=== PATIENT | female | born 1995 | race Two or more races ===

== ENCOUNTER 2024-08-23 00:41 | Emergency (ER) | payer MEDICAID, OTHER ==
[~2024-08-23] VITALS: Ht 157.5 cm; Wt 70.9 kg
--- NOTE | 2024-08-23 01:09 | ED.PDOC ---
GI ASSESSMENT HPI Comments A 28 year old female presents to the ED with a chief complaint of abdominal pain onset 3 days. Patient states she began experiencing abdominal pain as well as fever, congestion 3 days ago and woke up about 1 hour ago with nausea/ vomiting and noticed blood in vomit. Patient denies constipation, diarrhea, chest pain, shortness of breath, headache. She has a past medical history of IBS. No other symptoms or modifying factors present at this time. Chief Complaint: Flu like Time Seen by MD: 00:48 Reviewed Notes: Medications, Allergies Allergies: Coded Allergies: NO KNOWN ALLERGIES (Unverified , 08/23/24) Home Meds Active Scripts Ondansetron Odt 4MG Tab (ZOFRAN PO) 4 Mg Tb, 4 MG PO TIDPRN PRN for 3 Days, #9 TAB ODT TAB-DISSOLVE IN MOUTH, THEN SWALLOW Prov:RICHARD FERNÁNDEZ MD 08/23/24 Sucralfate (CARAFATE) 1 Gm Tab, 1 GM OR TID PRN for 3 Days, #9 TAB Prov:RICHARD FERNÁNDEZ MD 08/23/24 Pantoprazole Sodium Sesquihydr (Protonix) 40 Mg Tab, 40 MG PO DAILY for 5 Days, #5 TAB Prov:RICHARD FERNÁNDEZ MD 08/23/24 Information Source: Patient Mode of Arrival: Ambulatory Timing: Days Duration: Since onset Prehospital treatment: None Severity: Moderate Recent: None Recent Hx of: None Pain Location: Epigastric Associated sign and symptoms: Nausea, Vomiting, Abdominal Pain, Fever Vital Signs Vital Signs Date Time Temp Pulse Resp B/P (MAP) Pulse Ox O2 Delivery O2 Flow Rate FiO2 08/23/24 03:41 78 16 141/85 (103) 96 08/23/24 02:46 97.8 97.8 Physical Exam General: Awake, alert and oriented. No acute distress. Skin: Skin in warm, dry and intact. Appropriate color for ethnicity. Nailbeds pink with no cyanosis. HEENT: The head is normocephalic and atraumatic. Conjunctivae are clear without exudates or hemorrhage. Sclera is non-icteric. EOM are intact. No signs of nystagmus. Eyelids are normal in appearance without swelling or lesions. Oral mucosa is pink and moist Neck: The neck is supple with normal range of motion. No JVD. Cardiac: Heart rate and rhythm are normal. No murmurs, gallops, or rubs are auscultated. Respiratory: No signs of respiratory distress. Lung sounds are clear in all lobes bilaterally without rales, ronchi, or wheezes. Abdominal: Abdomen is soft, generally-tender without distention. Bowel sounds are present and normoactive in all four quadrants. Extremities: Upper and lower extremities are atraumatic in appearance without deformity or edema. Neurological: The patient is awake, alert and oriented to person, place, and time with normal speech. Speech is clear. There is no facial asymmetry. Psychiatric: Appropriate mood and affect. Good judgement and insight. No visual or auditory hallucinations. Review of Systems: REVIEW OF SYSTEMS: Positive fever, positive chills, or fatigue HEENT: No sore throat, no earache, positive congestion, no neck pain. Cardiac: No chest pain. No palpitations. Lungs: No shortness of breath, positive cough. GI: No nausea, no vomiting, no diarrhea, no constipation, positive abdominal pain : No dysuria, frequency, or urgency. No hematuria. Musculoskeletal: No joint pain , no joint swelling, no extremity edema. Skin: No rash, no itching. Neuro: No headache, no dizziness, no weakness Past Medical History Past Medical History (Other): IBS Surgical History: Denies all surgeries VETERINARY MANAGER History: No Pertinent VETERINARY MANAGER History Family History Family History: Reviewed,noncontributory to illness, No family hx of Cancer, No family hx of DM, No family hx of Heart girma, No family hx of HTN, No family hx ofKidney girma, No family hx of Liver girma, No family hx of Lung girma, No family hx of Stroke Social History Smoker: Non-Smoker Alcohol: Denies ETOH Use Drugs: Denies Drug Use Lives In: Home Was a procedure done? Was a procedure done?: No GI differential Dx Differential Diagnosis: Other Other Differential Diagnosis Peptic ulcer disease, esophageal varices,Andrea's esophagus, cancer, divertic ular disease, esophageal rupture/perforation, Antonieta-Wiley tear X-Ray, Labs, Meds, VS Vital Signs Date Time Temp Pulse Resp B/P (MAP) Pulse Ox O2 Delivery O2 Flow Rate FiO2 08/23/24 03:41 78 16 141/85 (103) 96 08/23/24 03:39 78 16 141/85 08/23/24 03:02 87 20 125/86 08/23/24 02:46 97.8 89 20 125/86 (99) 98 97.8 08/23/24 00:56 98.2 120 18 134/74 (94) 96 Lab Test 08/23/24 03:20 08/23/24 01:15 08/23/24 00:55 Range/Units Urine Color Yellow Yellow Urine Clarity Clear Clear Urine pH 6.0 5.0-9.0 Urine Specific [place] < 1.050 H 1.001-1.035 Urine Protein 1+ H Negative Urine Ketones Trace Negative Urine Blood 3+ H Negative /uL Urine Nitrite Negative Negative Urine Bilirubin Negative Negative Urine Urobilinogen Normal Negative mg/dL Urine Leukocyte Esterase Negative Negative /uL Urine RBC 46 0 - 4 /hpf Urine WBC 2 0 - 5 /hpf Urine Squamous Epithelial Cells Few <5 /hpf Urine Bacteria None seen None Seen /hpf Urine Mucus Few None Seen Urine Glucose Normal Normal mg/dL White Blood Count 11.6 H 4.4-10.8 10^3/uL Red Blood Count 5.22 H 4.0-5.20 10^6/uL Hemoglobin 15.9 12.2-16.2 g/dL Hematocrit 47.1 H 36.0-46.0 % Mean Corpuscular Volume 90.2 80.0-100.0 fL Mean Corpuscular Hemoglobin 30.5 28.0-32.0 pg Mean Corpuscular Hemoglobin Concent 33.8 32.0-36.0 g/dL Red Cell Distribution Width 13.0 11.8-14.3 % Platelet Count 356 140-450 10^3/uL Mean Platelet Volume 7.5 6.9-10.8 fL Neutrophils (%) (Auto) 75.6 37.0-80.0 % Lymphocytes (%) (Auto) 14.1 10.0-50.0 % Monocytes (%) (Auto) 4.9 0.0-12.0 % Eosinophils (%) (Auto) 5.1 0.0-7.0 % Basophils (%) (Auto) 0.3 0.0-2.0 % Neutrophils # (Auto) 8.8 H 1.6-8.6 10 ^3/uL Lymphocytes # (Auto) 1.6 0.4-5.4 10 ^3/uL Monocytes # (Auto) 0.6 0-1.3 10 ^3/uL Eosinophils # (Auto) 0.6 0-0.8 10 ^3/uL Basophils # (Auto) 0 0-0.2 10 ^3/uL Nucleated Red Blood Cells 0.1 % Prothrombin Time 11.4 9.3-11.8 sec Prothrombin Time INR 1.08 0.9-1.15 Sodium Level 140 136-145 mmol/L Potassium Level 3.6 3.5-5.1 mmol/L Chloride Level 106 98-107 mmol/L Carbon Dioxide Level 23 20-31 mmol/L Anion Gap 11 5-15 Blood Urea Nitrogen 7 L 9-23 mg/dL Creatinine 0.79 0.550-1.02 mg/dL Glomerular Filtration Rate Calc 106 >90 mL/min BUN/Creatinine Ratio 8.9 L 10.0-20.0 Serum Glucose 102 74-106 mg/dL Calcium Level 10.7 H 8.7-10.4 mg/dL Total Bilirubin 1.3 H 0.2-1.0 mg/dL Aspartate Amino Transferase (AST) 15 13-40 U/L Alanine Aminotransferase (ALT) 17 7-40 U/L Alkaline Phosphatase 113 46-116 U/L Total Protein 8.5 H 5.7-8.2 g/dL Albumin 5.7 H 3.2-4.8 g/dL Lipase 34 12-53 U/L Beta HCG, Quantitative < 0.0 L 1.5-4.2 mIU/mL Influenza Type A Antigen Negative Negative Influenza Type B Antigen Negative Negative SARS-CoV-2 Antigen (Rapid) Negative NEGATIVE [place] [address] Ph: [phone] DIAGNOSTIC IMAGING Diagnostic Imaging Report : [id number] Signed PATIENT: TOÑA SCHMITT AYDEEACCT: [id number] UNIT: [id number] : 1995 LOC: ER ROOM / BED: / AGE / SEX: 28 / F ADM STATUS: REG ER SERVICE 005 ORDERING PHYSICIAN: RICHARD FERNÁNDEZ MD PROCEDURE(s): ABPLIV - CT AB PEL WITH IV CON ONLY REASON: abdominal pain, hematemesis ORDER NUMBER(s): [id number], ACCESSION NUMBER(s): [id number] CLINICAL HISTORY: abdominal pain, hematemesis TECHNIQUE: CT of the abdomen and pelvis was performed with intravenous contrast. 100 mL Omnipaque 300 This exam was performed according to our departmental dose optimization program. Up-to-date CT equipment and radiation dose reduction techniques are utilized as appropriate. [Radimetrics Exposure Report] CTDIVol: [CTDIvol] mGy DLP: 567.83 mGy-cm WID: COMPARISON: None FINDINGS: Lower Thorax: Sub 5 mm subpleural basilar left lower lobe pulmonary nodule on series 3, image 39. Normal-sized heart. Liver and Biliary system: Unremarkable. Spleen: Unremarkable. Adrenal Glands and Kidneys: Normal adrenal glands. lobulation of the kidneys. Tiny nonobstructing left renal calculus. Tiny left lower pole renal cysts. No hydronephrosis in either kidney. Pancreas and Retroperitoneum: Unremarkable. Aorta and Major Vessels: Unremarkable. Bowel, Mesentery and Peritoneal space: Normal caliber small and large bowel. Apparent mild wall thickening of the descending and sigmoid colon which may be underdistended. Normal appendix. Fluid filled ascending colon. There is no free air or fluid collection. Mild colonic diverticulosis. Pelvis: Unremarkable. Abdominal wall and Osseous Structures: No destructive osseous lesion. IMPRESSION: 1. Apparent long segment wall thickening of the descending and sigmoid colon which may be due to underdistention versus infectious or inflammatory colitis. 2. Fluid-filled ascending colon. This could be manifesting as loose stools and/or diarrhea. 3. Tiny nonobstructing left renal calculus. ATED BY: PETE FREY MD DICTATED DATE/TIME: 08/23/24222 SIGNED BY: PETE FREY MD SIGNED DATE/TIME: 08/23/24222 CC: [place] [address] Ph: [phone] DIAGNOSTIC IMAGING Diagnostic Imaging Report : [id number] Signed PATIENT: TOÑA SCHMITT ACCT: [id number] UNIT: [id number] : 1995 LOC: ER ROOM / BED: / AGE / SEX: 28 / F ADM STATUS: REG ER SERVICE 005 ORDERING PHYSICIAN: RICHARD FERNÁNDEZ MD PROCEDURE(s): CXR1 - CHEST XRAY 1 VIEW REASON: Hematemesis ORDER NUMBER(s): [id number], ACCESSION NUMBER(s): [id number] EXAM: XY CHEST XRAY 1 VIEW CLINICAL HISTORY: Hematemesis TECHNIQUE: Single AP view of the chest WID: COMPARISON: None FINDINGS: Lines and tubes: None Chest: The heart size and pulmonary vasculature is within normal limits. No pleural effusion, pneumothorax, or consolidation. The osseous structures are grossly intact. IMPRESSION: No acute cardiopulmonary abnormality. ATED BY: PTEE FREY MD DICTATED DATE/TIME: 08/23/24146 SIGNED BY: PETE FREY MD SIGNED DATE/TIME: 08/23/24146 CC: Time of 1ST Reevaluation: 01:18 Reevaluation 1ST: Unchanged Patient Education/Counseling: Diagnosis, Treatment, Prognosis Family Education/Counseling: No Family Present Departure 1 Departure Time of Disposition: 03:33 Impression: Primary Impression: Abdominal pain Disposition: 01 HOME / SELF CARE / HOMELESS Condition: Stable Additional Instructions: ED DISCHARGE INSTRUCTIONS Instructions: Please read all instructions provided in this packet carefully. Although you have been discharged from the Emergency Department, this does not mean that you have a "clean bill of health". No definitive diagnosis for your symptoms has been made today. It is possible that you are in the process of developing a serious illness. This is why you must return to the ED without fail if any new or worsening symptoms (especially if your symptoms include chest pain, trouble breathing, abdominal pain, fever, headache, confusion, trouble seeing, or trouble walking) It is also very important that you see a primary care doctor within the next 1-3 days to follow up. If you are unable to get an appointment, return to the ED for re-evaluation. Gastrointestinal Bleeding: Care Instructions Overview The digestive or gastrointestinal tract goes from the mouth to the anus. It is often called the GI tract. Bleeding can happen anywhere in the GI tract. It may be caused by an ulcer, an infection, or cancer. It may also be caused by medicines such as aspirin or ibuprofen. Light bleeding may not cause any symptoms at first. But if you continue to bleed for a while, you may feel weak or tired. Sudden, heavy bleeding means you need to see a doctor right away. The doctor may do some tests to find the cause of your bleeding. Treatment is needed to control the bleeding and treat the cause of the bleeding. Follow-up care is a pinzon part of your treatment and safety. Be sure to make and go to all appointments, and call your doctor if you are having problems. It's also a good idea to know your test results and keep a list of the medicines you take. How can you care for yourself at home? Be safe with medicines. Take your medicines exactly as prescribed. Call your doctor if you think you are having a problem with your medicine. You will get more details on the specific medicines your doctor prescribes. Do not take blood thinners, aspirin, or other anti-inflammatory medicines, such as naproxen (Aleve) or ibuprofen (Advil, Motrin), without talking to your doctor first. Do not drink alcohol. The bleeding may increase your risk for a low red blood cell count (anemia). When should you call for help? Call 911 anytime you think you may need emergency care. For example, call if: You have sudden, severe belly pain. You vomit blood or what looks like coffee grounds. You passed out (lost consciousness). Your stools are maroon or very bloody. Call your doctor now or seek immediate medical care if: You are dizzy or lightheaded, or you feel like you may faint. Your stools are black and look like tar, or they have streaks of blood. You have belly pain. You vomit or have nausea. You have trouble swallowing, or it hurts when you swallow. Watch closely for changes in your health, and be sure to contact your doctor if: You do not get better as expected. Credits for Gastrointestinal Bleeding: Care Instructions Current as of: July 07, 2023 Author: Giuliana [employer]YOLANDA Staff Clinical Review Board All [employer] education is reviewed by a team that includes physicians, nurses, advanced practitioners, registered dieticians, and other healthcare profes sionals. Abdominal Pain: Care Instructions Overview Abdominal pain has many possible causes. Some aren't serious and get better on their own in a few days. Others need more testing and treatment. If your pain continues or gets worse, you need to be rechecked and may need more tests to find out what is wrong. You may need surgery to correct the problem. Don't ignore new symptoms, such as fever, nausea and vomiting, urination problems, pain that gets worse, and dizziness. These may be signs of a more seri ous problem. If you are not getting better, you may need more tests or treatment. The doctor has checked you carefully, but problems can develop later. If you notice any problems or new symptoms, get medical treatment right away. Follow-up care is a pinzon part of your treatment and safety. Be sure to make and go to all appointments, and call your doctor if you are having problems. It's also a good idea to know your test results and keep a list of the medicines you take. How can you care for yourself at home? Rest until you feel better. To prevent dehydration, drink plenty of fluids. Choose water and other clear liquids until you feel better. If you have kidney, heart, or liver disease and have to limit fluids, talk with your doctor before you increase the amount of fluids you drink. When you feel like eating, start with small amounts. Do not have alcohol, caffeine, or spicy, hot, or high-fat foods for a day or two. Avoid anti-inflammatory medicines such as aspirin, ibuprofen (Advil, Motrin), and naproxen (Aleve). These can cause stomach upset. Talk to your doctor if you take daily aspirin for another health problem. When should you call for help? Call 911 anytime you think you may need emergency care. For example, call if: You passed out (lost consciousness). You pass maroon or very bloody stools. You vomit blood or what looks like coffee grounds. You have severe belly pain. Call your doctor now or seek immediate medical care if: Your pain gets worse, especially if it becomes focused in one area of your burger y. You have a new or higher fever. Your stools are black and look like tar, or they have streaks of blood. You have unexpected vaginal bleeding. You have symptoms of a urinary tract infection. These may include: Pain when you urinate. Urinating more often than usual. Blood in your urine. You are dizzy or lightheaded, or you feel like you may faint. Watch closely for changes in your health, and be sure to contact your doctor if: You are not getting better as expected. Credits for Abdominal Pain: Care Instructions Current as of: July 07, 2023 Author: Giuliana [employer], [email or web address] Staff Clinical Review Board All [employer] education is reviewed by a team that includes physicians, nurses, advanced practitioners, registered dieticians, and other healthcare profess ionals. e-Prescriptions Ondansetron Odt 4MG Tab (ZOFRAN PO) 4 Mg Tb 4 MG PO TIDPRN PRN for 3 Days, #9 TAB ODT TAB-DISSOLVE IN MOUTH, THEN SWALLOW Prov: RICHARD FERNÁNDEZ MD 08/23/24 Sucralfate (CARAFATE) 1 Gm Tab 1 GM OR TID PRN for 3 Days, #9 TAB Prov: RICHARD FERNÁNDEZ MD 08/23/24 Pantoprazole Sodium Sesquihydr (Protonix) 40 Mg Tab 40 MG PO DAILY for 5 Days, #5 TAB Prov: RICHARD FERNÁNDEZ MD 08/23/24 Comments 28-year-old female who presents to the emergency department with abdominal pain, episode of hematemesis. No further hematemesis observed in the emergency department. Patient is well-appearing, nontoxic. Vital signs stable. Lab and imaging results reviewed and are not urgently actionable. Patient is felt stable for discharge home. Patient advised to follow up with primary care provi rodriguez promptly and return to the emergency department with any new, worsening or concerning symptoms. Extensive evaluation was performed in attempt to identify or rule out: Gastrointestinal perforation, esophageal perforation, Antonieta-Wiley tear, active GI bleed The following tests were ordered, and results were reviewed by me: (See diagnostic results section) I reviewed and agreed with the following test results read by other providers: CT abdomen and pelvis-negative for bowel perforation I reviewed the following notes from the pt's past medical encounters: N/A Additional information was gathered from interviewing the following independent historians: Patient's mother at bedside Discussion of management or test interpretation with external physician/other qualified health child care development specialist: N/A Addressed an acute or chronic illness that poses a threat to life or bodily function: Gastrointestinal bleeding Decision regarding hospitalization or escalation of hospital level of care: Risks and benefits of admission for further treatment of patient's condition were considered however due to patient's stable condition patient will be discha rged to follow up closely or return to care for worsening of condition or inability to follow up. Critical Care Note Critical Care Time?: No Stability Stability form required: No I personally scribed for RICHARD FERNÁNDEZ MD ([email or web address]) on 08/23/24 at 01:09. Electronically submitted by Mary Grace Ferrari ([email or web address]). I personally scribed for RICHARD FERNÁNDEZ MD ([email or web address]) on 08/23/24 at 02:29. Electronically submitted by Mary Grace Ferrari ([email or web address]). RICHARD FERNÁNDEZ MD Aug 23, 2024 01:09
[2024-08-23 01:33] LABS: Basophils # (auto) 0 10 ^3/uL (0-0.2); Basophils % (auto) 0.3 % (0.0-2.0); Eosinophils # (auto) 0.6 10 ^3/uL (0-0.8); Eosinophils % (auto) 5.1 % (0.0-7.0); Hematocrit 47.1 % (36.0-46.0); Hemoglobin 15.9 g/dL (12.2-16.2); Lymphocytes # (auto) 1.6 10 ^3/uL (0.4-5.4); Lymphocytes % (auto) 14.1 % (10.0-50.0); Mean Corpuscular Hemoglobin 30.5 pg (28.0-32.0); Mean Corpuscular Hgb Conc. 33.8 g/dL (32.0-36.0); Mean Corpuscular Volume 90.2 fL (80.0-100.0); Monocytes # (auto) 0.6 10 ^3/uL (0-1.3); Monocytes % (auto) 4.9 % (0.0-12.0); Neutrophils # (auto) 8.8 10 ^3/uL (1.6-8.6); Neutrophils % (auto) 75.6 % (37.0-80.0); Nucleated Red Blood Cells % 0.1 %; Platelet Count (auto) 356 10^3/uL (140-450); Red Blood Cells 5.22 10^6/uL (4.0-5.20); White Blood Cell 11.6 10^3/uL (4.4-10.8)
[2024-08-23 01:38] LABS: Rapid Influenza A Negative (Negative); Rapid Influenza B Negative (Negative)
[2024-08-23 01:39] LABS: COVID19 ANTIGEN SOFIA FIA NEGATIVE (NEGATIVE)
[2024-08-23 01:48] LABS: INR 1.08 (0.9-1.15); Prothrombin Time 11.4 sec (9.3-11.8)
--- NOTE | 2024-08-23 01:50 | DVH ---
EXAM: XY CHEST XRAY 1 VIEW CLINICAL HISTORY: Hematemesis TECHNIQUE: Single AP view of the chest WID: COMPARISON: None FINDINGS: Lines and tubes: None Chest: The heart size and pulmonary vasculature is within normal limits. No pleural effusion, pneumothorax, or consolidation. The osseous structures are grossly intact. IMPRESSION: No acute cardiopulmonary abnormality.
[2024-08-23 01:51] LABS: Alanine Aminotransferase 17 U/L (7-40); Alkaline Phosphatase 113 U/L (46-116); Anion Gap 11 (5-15); Aspartate Aminotransferase 15 U/L (13-40); BUN/Creatinine Ratio 8.9 (10.0-20.0); Carbon Dioxide 23 mmol/L (20-31); Chloride 106 mmol/L (98-107); Glucose 102 mg/dL (74-106); Lipase 34 U/L (12-53); Potassium 3.6 mmol/L (3.5-5.1); Sodium 140 mmol/L (136-145)
[2024-08-23 02:03] LABS: Albumin 5.7 g/dL (3.2-4.8); Bilirubin, Total 1.3 mg/dL (0.2-1.0); Blood Urea Nitrogen 7 mg/dL (9-23); Calcium 10.7 mg/dL (8.7-10.4); Total Protein 8.5 g/dL (5.7-8.2)
--- NOTE | 2024-08-23 02:26 | DVH ---
CLINICAL HISTORY: abdominal pain, hematemesis TECHNIQUE: CT of the abdomen and pelvis was performed with intravenous contrast. 100 mL Omnipaque 300 This exam was performed according to our departmental dose optimization program. Up-to-date CT equip ment and radiation dose reduction techniques are utilized as appropriate. [Radimetrics Exposure Report] CTDIVol: [CTDIvol] mGy DLP: 567.83 mGy-cm WID: COMPARISON: None FINDINGS: Lower Thorax: Sub 5 mm subpleural basilar left lower lobe pulmonary nodule on series 3, image 39. Nor mal-sized heart. Liver and Biliary system: Unremarkable. Spleen: Unremarkable. Adrenal Glands and Kidneys: Normal adrenal glands. lobulation of the kidneys. Tiny nonobstruct ing left renal calculus. Tiny left lower pole renal cysts. No hydronephrosis in either kidney. Pancreas and Retroperitoneum: Unremarkable. Aorta and Major Vessels: Unremarkable. Bowel, Mesentery and Peritoneal space: Normal caliber small and large bowel. Apparent mild wall thick ening of the descending and sigmoid colon which may be underdistended. Normal appendix. Fluid filled ascending colon. There is no free air or fluid collection. Mild colonic diverticulosis. Pelvis: Unremarkable. Abdominal wall and Osseous Structures: No destructive osseous lesion. IMPRESSION: 1. Apparent long segment wall thickening of the descending and sigmoid colon which may be due to unde rdistention versus infectious or inflammatory colitis. 2. Fluid-filled ascending colon. This could be manifesting as loose stools and/or diarrhea. 3. Tiny nonobstructing left renal calculus.
[2024-08-23 02:46] VITALS: TEMP 97.8
[2024-08-23] MEDS: SODIUM CHLORIDE 0.9% 1,000 ML IV ONE (02:56)
[2024-08-23] MEDS: ONDANSETRON HCL 4 MG/2 ML VIAL IV ONE (03:00)
[2024-08-23] MEDS: PANTOPRAZOLE 40 MG/10 ML VIAL INJ IV ONE (03:00)
[2024-08-23] MEDS: MORPHINE SULFATE INJ 2 MG/ml SYRG IV ONE (03:02)
[2024-08-23] MEDS: IOHEXOL 300 MG/ML 100ML BOTTLE IJ ONE (03:03)
[2024-08-23 03:41] VITALS: BP 141/85; PULSE 78; RESP 16; O2SAT 96
[2024-08-23 03:42] LABS: Urine Bacteria None Seen /hpf (None Seen)
[2024-08-23 04:04] LABS: Urine Blood 3+ /uL (Negative); Urine Clarity Clear (Clear); Urine Color Yellow (Yellow); Urine Mucus FEW (None Seen); Urine Protein, UAD 1+ (Negative); Urine Urobilinogen Normal (Negative); Urine WBC 2 /hpf (0 - 5)
[2024-08-23] MEDS ORDERED: ZOFR4T PO (04:04)
[2024-08-23] MEDS ORDERED: SUCR1TAB31 OR (04:04)
[2024-08-23] MEDS ORDERED: PANT40TA2 PO (04:04)
[2024-08-23 04:07] LABS: Urine Specific Gravity < 1.050 (1.001-1.035)
== END 2024-08-23 04:24 | disposition home or self-care (01) ==
LOC: ER 00:41
DX: R10.13 Epigastric pain (principal); R10.2 Pelvic and perineal pain; R50.9 Fever, unspecified; Z20.822 Contact with and (suspected) exposure to COVID-19; Z79.899 Other long term (current) drug therapy
CPT/HCPCS: 36415; 71045; 74177; 80053; 81001; 83690; 84702; 85025; 85610; 87426; 87804; 96361; 96374; 96375; 99285; J2270; J2405; J2470; J7030; Q9967